=== PATIENT | female | born 1945 | race Two or more races ===

== ENCOUNTER 2017-09-29 06:08 | Day surgery (SDC) | payer OTHER | END 2017-09-29 10:55 | disposition home or self-care (01) | LOC: AMB-ENDOS 06:08 | DX: D12.2 Benign neoplasm of ascending colon (principal); D12.4 Benign neoplasm of descending colon; D12.3 Benign neoplasm of transverse colon; D12.8 Benign neoplasm of rectum ==

== ENCOUNTER 2017-11-27 13:15 | Inpatient (IN) | payer OTHER ==
[~2017-11-27] VITALS: Ht 162.6 cm; Wt 57.2 kg
[2017-11-27] MEDS ORDERED: NORVASC2.5 M1 PO (13:42)
[2017-11-27] MEDS ORDERED: ZOCOR40 MG PO (13:43)
[2017-11-27] MEDS ORDERED: SYNTHROID50 MCG PO (13:43)
[2017-11-27] MEDS ORDERED: [UNRECOGNIZED DRUG - OTHER] PO (13:44)
[2017-11-27] MEDS ORDERED: GABAPENTIN100 MG PO (13:44)
[2017-12-03] MEDS ORDERED: TYLENOL ARTHRI650 MG PO (08:35)
[2017-12-06] MEDS ORDERED: INTESTINEX680 M1 PO (11:56)
[2017-12-06] MEDS ORDERED: AMOX1TAB5 PO (11:56)
== END 2017-12-06 14:36 | disposition home or self-care (01) | DRG 395 ==
LOC: O/R 12-02 06:30 → SURG 12-02 06:30 → SURH 12-02 07:00 → SURG 12-02 13:15
PROVIDERS: Surgery
PROC: 3E0T3BZ Introduction of Anesthetic Agent into Peripheral Nerves and Plexi, Percutaneous Approach (ICD-10-PCS; 2017-12-02)
PROC: 0DBP8ZZ Excision of Rectum, Via Natural or Artificial Opening Endoscopic (ICD-10-PCS; principal; 2017-12-02 07:00)
DX: D12.8 Benign neoplasm of rectum (principal); R50.82 Postprocedural fever

== ENCOUNTER 2018-12-28 06:20 | Day surgery (SDC) | payer OTHER ==
[~2018-12-28 06:20] MED LIST: AMOX1TAB5 PO; GABAPENTIN100 MG PO; INTESTINEX680 M1 PO; NORVASC2.5 M1 PO; SYNTHROID50 MCG PO; TYLENOL ARTHRI650 MG PO; ZOCOR40 MG PO; [UNRECOGNIZED DRUG - OTHER] PO
== END 2018-12-28 13:00 | disposition home or self-care (01) ==
LOC: AMB-ENDOS 06:20
DX: D12.4 Benign neoplasm of descending colon (principal)